=== PATIENT | female | born 1990 | race African-American/Black ===

== ENCOUNTER 2019-04-12 04:43 | Emergency (ER) | payer OTHER ==
[~2019-04-12] VITALS: Ht 165.1 cm; Wt 94.3 kg
[2019-04-12 10:03] VITALS: BP 101/70
== END 2019-04-12 10:06 | disposition home or self-care (01) ==
LOC: ER 04:43
DX: F10.129 Alcohol abuse with intoxication, unspecified (principal); Z98.890 Other specified postprocedural states